=== PATIENT | female | born 1950 | race Caucasian/White ===

== ENCOUNTER 2017-05-13 11:09 | Outpatient (CLI) | payer OTHER, MEDICARE ==
[2017-05-13] MEDS ORDERED: FUROSEMIDE 20 MG/2 ML VIAL IVP ONE (11:30)
== END 2017-05-13 19:00 | disposition home or self-care (01) ==
LOC: FOBOP 11:09
PROVIDERS: ATTEND Internal Medicine Hematology & Oncology
PROC: 30233N1 Transfusion of Nonautologous Red Blood Cells into Peripheral Vein, Percutaneous Approach (ICD-10-PCS; principal; 2017-05-13)
DX: D64.89 Other specified anemias (principal)
CPT/HCPCS: 36430; J1940; P9016

== ENCOUNTER → 2018-08-16 | Outpatient (CLI) | payer OTHER, MEDICARE | END | disposition home or self-care (01) | LOC: CIMAGING 12:27 | PROVIDERS: ATTEND Internal Medicine Hematology & Oncology | DX: R79.89 Other specified abnormal findings of blood chemistry (principal); R93.41 Abnormal radiologic findings on diagnostic imaging of renal pelvis, ureter, or bladder | CPT/HCPCS: 76770-PO ==